=== PATIENT | male | born 1990 | race African-American/Black ===

== ENCOUNTER 2022-05-02 08:55 | Emergency (ER) | payer SELFPAY ==
[~2022-05-02] VITALS: Ht 175.3 cm; Wt 86.4 kg
[2022-05-02 09:12] VITALS: BP 146/97
== END 2022-05-02 10:23 | disposition home or self-care (01) ==
LOC: EMS 08:57
DX: F32.A Depression, unspecified (principal); F17.210 Nicotine dependence, cigarettes, uncomplicated; Z91.51 Personal history of suicidal behavior
CPT/HCPCS: 99285